=== PATIENT | female | born 1955 | race African-American/Black ===

== ENCOUNTER 2021-07-06 17:15 | Inpatient (IN) | payer OTHER ==
[~2021-07-06] VITALS: Ht 152.4 cm; Wt 59.4 kg
[2021-07-06 17:24] VITALS: BP 169/69
[2021-07-06 18:21] LABS: ABSOLUTE NEUTROPHILS 6.7 thou/uL (1.4-8.2); BASOPHILS 0.6 % (0.0-2.0); EOSINOPHILS 0.9 % (0.0-3.0); HEMATOCRIT 41.9 % (37.0-47.0); HEMOGLOBIN 13.3 gm/dL (12.0-15.0); LYMPHOCYTES 17.2 % (24.0-44.0); MCH 23.6 pg (26.0-34.0); MCHC 31.6 g/dL (28.0-37.0); MCV 74.6 fL (80.0-100.0); MONOCYTES 7.3 % (1.0-8.0); PLATELET COUNT 348 thou/uL (150-400); RBC 5.62 mil/uL (4.20-5.00); RDW 16.1 % (10.5-14.5); WBC 9.1 thou/uL (4.0-11.0)
[2021-07-06] MEDS ORDERED: BENICAR20 MG PO (18:41)
[2021-07-06] MEDS ORDERED: PRILOSEC OTC20 MG PO (18:41)
[2021-07-06] MEDS ORDERED: VITAMIN E1000 UNIT PO (18:42)
[2021-07-06 18:53] LABS: CALCIUM 9.1 mg/dL (8.5-10.1); CREATININE 0.8 mg/dL (0.6-1.0); POTASSIUM 3.9 mmol/L (3.5-5.1)
[2021-07-06 19:00] LABS: ALBUMIN 3.6 g/dL (3.4-5.0); MAGNESIUM 2.2 mg/dL (1.8-2.4); TOTAL BILIRUBIN 0.3 mg/dL (0.2-1.0); TOTAL PROTEIN 8.3 g/dL (6.4-8.2)
[2021-07-06 21:18] VITALS: BP 166/64
[2021-07-06 21:37] VITALS: BP 135/68
[2021-07-06 22:00] VITALS: BP 154/92
[2021-07-07 00:45] VITALS: BP 128/74
[2021-07-07 04:45] VITALS: BP 148/86
[2021-07-07 05:24] LABS: HEMATOCRIT 42.9 % (37.0-47.0); HEMOGLOBIN 13.7 gm/dL (12.0-15.0); MCH 23.7 pg (26.0-34.0); MCV 74.3 fL (80.0-100.0); RBC 5.78 mil/uL (4.20-5.00); RDW 15.9 % (10.5-14.5); WBC 7.7 thou/uL (4.0-11.0)
[2021-07-07 05:29] LABS: INR 1.06; PROTIME 11.5 Seconds (10.5-12.1)
[2021-07-07 05:44] LABS: CALCIUM 9.4 mg/dL (8.5-10.1); CREATININE 0.7 mg/dL (0.6-1.0); POTASSIUM 3.8 mmol/L (3.5-5.1)
--- NOTE | 2021-07-07 06:08 | NUR ---
ASSESSMENTS CHARTED. PATIENT ARRIVED FROM ED NEAR START OF SHIFT. PATIENT AMBULATED TO BED FROM CART. DENIES PAIN. SHORTNESS OF BREATH 2/2 LT PLEURAL EFFUSION. PATIENT STATED LEFT BREAST MASS IS BENIGN. PT WORKED UP FOR PE PROTOCOL, NO PE EVIDENT. PATIENT IS SCHEDULED FOR IR IN THE DAY FOR A THORACENTESIS.
[2021-07-07 08:00] VITALS: BP 142/94
[2021-07-07 12:00] VITALS: BP 157/86
--- NOTE | 2021-07-07 12:05 | EKG ---
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
[2021-07-07 14:30] LABS: BF NUCLEATED CELLS 1111 /mm3; BF RBC 154061 /mm3
[2021-07-07 14:33] LABS: TOTAL VOLUME 60 mL
[2021-07-07 14:34] LABS: CLARITY CLOUDY; COLOR RED
[2021-07-07 15:00] VITALS: BP 137/59
[2021-07-07 15:51] LABS: SOURCE THORACENTESIS
[2021-07-07 17:10] LABS: BF MACROPHAGE 40 %; BF NEUTROPHILS 0 %
--- NOTE | 2021-07-07 18:18 | NUR ---
ASSESSMENT CHARTED - MEDS PER OCT - PT REFUSED FLU SHOT THIS AM. FAB DIET AND FLUIDS. NO CO'S OF PAIN OR NASUEA. PT HAD THORACENTISIS COMPLETED TODAY - FOUND LUNG TO HAVE BLOOD PRESENT - WHEN FLUIDS REMOVED AIR FILLED UP SPACE AND LUNG COLLAPSED - PT BACK TO UNIT - PLACED ON O2 @ 2 L NC ORDERED. PT CHECKED REGULARLY FOR SHOTNESS OF BREATH WHICH PATIENT STATES SHE DOES NOT HAVE. TO HAVE CHEST XRAY DONE AT 2100 - DR MARQUEZ WILL BE CALLED RESULTS AND ANOTHER IN THE AM. DR MCBRIDE STATED THAT IF PATIENT HAD CHEST PAIN OR SOZ THAT CHEST TUBE NEEDED TO BE PLACED IMMEADIATLEY. PT WITH NO CO'S AT THE PRESENT TIME - FAB DIET AND FLUIDS - UP TO BTHROOM WITH NO CO'S OF SOA .
[2021-07-07 20:12] VITALS: BP 152/82
[2021-07-08 04:45] VITALS: BP 140/85
[2021-07-08 06:18] LABS: CALCIUM 9.3 mg/dL (8.5-10.1); CREATININE 0.7 mg/dL (0.6-1.0)
[2021-07-08 06:19] LABS: POTASSIUM 5.9 mmol/L (3.5-5.1)
[2021-07-08 06:40] LABS: HEMATOCRIT 44.2 % (37.0-47.0); MCH 23.6 pg (26.0-34.0); MCHC 31.6 g/dL (28.0-37.0); MCV 74.8 fL (80.0-100.0); RBC 5.91 mil/uL (4.20-5.00); RDW 16.1 % (10.5-14.5); WBC 9.9 thou/uL (4.0-11.0)
[2021-07-08 08:15] VITALS: BP 140/51
[2021-07-08 12:00] VITALS: BP 118/67
[2021-07-08] MEDS ORDERED: PROAIR HFA8.5 GM INH (14:04)
[2021-07-08 14:22] VITALS: BP 118/67
--- NOTE | 2021-07-08 15:11 | NUR ---
ASSESSMENT CHARTED - PT UP AD CONRADO IN ROOM WITH NO CO'S OF SOB. FAB DIET AND FLUIDS. AMBULATED IN THE HALLS EXERCISE OX COMPLETED SAT ABOVE 90. NO SOB NOTED. PT HOME THIS AFTERNOON, INSTRUCTION RE HOME MEDS/ CARE AND FOLLOW UP GIVEN - ADDED TO D/C SHEET THAT PT NEEDED TO FOLLOW UP WITH PULMONOLOGY AND PHONE# PROVIDED. PT LEFT UNIT VIA WHEEL - HOME VIA PVT VEHICLE NO CO'S AT TIME OF D/C.
[2021-07-11 10:07] LABS: BODY FLUID ALBUMIN 3.2 g/dL (Not Estab.); BODY FLUID AMYLASE 33 U/L (()); BODY FLUID GLUCOSE 82 mg/dL (()); BODY FLUID LDH 295 IU/L (()); BODY FLUID PROTEIN 5.2 g/dL (())
[2021-07-12 09:19] LABS: SOURCE THORACENTESIS
--- NOTE | 2021-07-15 13:08 | PATH ---
[facility] [address] [place] [address] PATHOLOGY RPT PROCEDURE Name: MORIAH OSHEA Room #: 207-P [facility] IN ..#: [id number] Admission: 07/06/21 Date of : 59 Discharge: 07/08/21 Report #: [id number] Path Case #: [id number] Note [facility] Accession Number: [id number] TESTS RESULT FLAG UNITS REF RANGE LAB Clinician Provided Cytology Information No. of containers..01 Other (Miscellaneous) Source: PLEURAL FLUID DIAGNOSIS: 02 PLEURAL FLUID NEGATIVE FOR MALIGNANT CELLS. MESOTHELIAL CELLS ARE PRESENT. Signed out by: 02 Harsha Yap MD, Pathologist NPI- [id number] Performed by: 01 Karoline Phillips Director Telecommunications ([facility]) Gross description: 01 10ML, BLOODY, RED /LCS 07/08/2021 1829 Local FLAG LEGEND: L-Low Normal,H-High Normal,LL-Alert Low,HH-Alert High <-Panic Low,>-Panic High,A-Abnormal,AA-Critical Abnormal Performed at: [address] [place] [address] Scott Agrawal MD, [address] [place] [id number] Harsha Yap MD, Specimen Comment: A courtesy copy of this report has been sent to [phone], [phone] Specimen Comment: [phone], Specimen Comment: Report sent to , DR LARSON / DR MARAVILLA Performed at: [address], [place], [place] [id number] MD Scott Agrawal MD Phone: [phone]
== END 2021-07-08 15:02 | disposition home or self-care (01) | DRG 194 ==
LOC: ER 17:15 → EROBS 21:10 → 2N 21:10
PROVIDERS: Internal Medicine Pulmonary Disease; Nurse Practitioner Family; ADMIT Hospitalist; ATTEND Hospitalist
PROC: 0W9B3ZZ Drainage of Left Pleural Cavity, Percutaneous Approach (ICD-10-PCS; principal; 2021-07-07)
DX: J18.9 Pneumonia, unspecified organism (principal); J91.8 Pleural effusion in other conditions classified elsewhere; I10 Essential (primary) hypertension; K21.9 Gastro-esophageal reflux disease without esophagitis; R79.1 Abnormal coagulation profile; M34.9 Systemic sclerosis, unspecified; I73.00 Raynaud's syndrome without gangrene; Z20.822 Contact with and (suspected) exposure to COVID-19; Z28.21 Immunization not carried out because of patient refusal; Z79.899 Other long term (current) drug therapy; Z88.1 Allergy status to other antibiotic agents; Z83.6 Family history of other diseases of the respiratory system; Z80.9 Family history of malignant neoplasm, unspecified; Z83.3 Family history of diabetes mellitus; Z82.49 Family history of ischemic heart disease and other diseases of the circulatory system; Z82.3 Family history of stroke; Z83.438 Family history of other disorder of lipoprotein metabolism and other lipidemia; Z82.0 Family history of epilepsy and other diseases of the nervous system
CPT/HCPCS: 10081

== ENCOUNTER 2021-07-20 20:43 | Emergency (ER) | payer OTHER ==
[~2021-07-20] VITALS: Ht 154.9 cm; Wt 57.6 kg
[~2021-07-20 20:43] MED LIST: BENICAR20 MG PO; PRILOSEC OTC20 MG PO; PROAIR HFA8.5 GM INH; VITAMIN E1000 UNIT PO
[2021-07-20 22:04] VITALS: BP 155/67
== END 2021-07-20 22:06 | disposition home or self-care (01) ==
LOC: ER 20:43
DX: R04.0 Epistaxis (principal); R04.2 Hemoptysis; I10 Essential (primary) hypertension; K21.9 Gastro-esophageal reflux disease without esophagitis; Z88.3 Allergy status to other anti-infective agents; Z79.899 Other long term (current) drug therapy

== ENCOUNTER → 2021-07-22 | Outpatient (CLI) | payer OTHER | LOC: RAD 13:07 | PROVIDERS: ATTEND Internal Medicine Pulmonary Disease | DX: J90 Pleural effusion, not elsewhere classified (principal); R91.8 Other nonspecific abnormal finding of lung field ==

== ENCOUNTER → 2021-08-19 | Outpatient (CLI) | payer OTHER ==
[~2021-08-19] MED LIST changes: +MULTI VITAMIN1 EACH PO; +VITAMIN D21250 MCG PO; +[UNRECOGNIZED DRUG - REMARK]
--- NOTE | 2021-08-19 12:21 | 2DMMODE ---
[facility] [place] [address] 2 D/M-MODE ECHOCARDIOGRAM Name: MORIAH OSHEA Room #: REG VALENTINO Galaviz.#: [id number] Admission: 08/19/21 Attend Phys: Jesse Almazan MD Discharge: Date of : 59 Report #: [id number] THIS REPORT FOR: cc: Harvey Moon MD, Michael B. MD Lammoglia, Francisco J. MD ~ APPROVED REPORT Study performed: 08/19/2021 11:18:00 EXAM: Comprehensive 2D, Doppler, and color-flow Echocardiogram Patient Location: Out-Patient Room #: 1 Status: routine BSA: 1.52 HR: 90 bpm BP: 148/82 mmHg Rhythm: NSR Other Information Study Quality: Adequate Indications Dyspnea Hypertension/HDD 2D Dimensions IVSd: 11.58 (7-11mm) LVOT Diam: 19.39 (18-24mm) LVDd: 31.64 mm PWd: 12.37 (7-11mm) Ascending Ao: 26.03 (22-36mm) LVDs: 21.23 (25-40mm) Left Atrium: 26.24 (27-40mm) Aortic Root: 22.40 mm IVC: 10.00 mm Volumes Left Atrial Volume (Systole) Single Plane 4CH: 19.68 mL Single Plane 2CH: 26.40 mL LA ESV Index: 17.00 mL/m2 Aortic Valve AoV Peak Jeremiah.: 1.25 m/s AO Peak Gr.: 6.20 mmHg LVOT Max P.42 mmHg LVOT Max V: 1.16 m/s SHELL Vmax: 2.76 cm2 [facility] [address] [place] [address] 2 D/M-MODE ECHOCARDIOGRAM Name: DAYOMORIAH Room #: REG CL [facility]#: [id number] Admission: 08/19/21 Attend Phys: Jesse Almazan MD Discharge: Date of : 59 Report #: [id number] Mitral Valve E/A Ratio: 0.9 MV Decel. Time: 257.83 ms MV E Max Jeremiah.: 0.75 m/s MV A Jeremiah.: 0.84 m/s MV PHT: 74.77 ms IVRT: 124.57 ms Pulmonary Valve PV Peak Jeremiah.: 0.94 m/s PV Peak Gr.: 3.53 mmHg Pulmonary Vein P Vein S: 1.04 m/s P Vein A: 0.27 m/s P Vein D: 0.63 m/s P Vein A Dur.: 110.7 msec P Vein S/D Ratio: 1.65 Tricuspid Valve TR Peak Jeremiah.: 3.04 m/s TR Peak Gr.: 36.99 mmHg PA Pressure: 42.00 mmHg Left Ventricle The left ventricle is normal size. There is normal LV segmental wall motion. Mild concentric left ventricular hypertrophy. The left ventricular systolic function is normal. The left ventricular ejection fraction is within the normal range. LVEF is 55-60%. Grade I - abnormal relaxation pattern. Right Ventricle The right ventricle is normal size. The right ventricular systolic function is normal. Atria The left atrium size is normal. The right atrium size is normal. Aortic Valve The aortic valve is normal in structure. No aortic regurgitation is present. There is no aortic valvular stenosis. Mitral Valve The mitral valve is normal in structure. There is no mitral valve regurgitation noted. No evidence of mitral valve stenosis. Tricuspid Valve [facility] [place] [address] 2 D/M-MODE ECHOCARDIOGRAM Name: MORIAH OSHEA Room #: REG [facility]#: [id number] Admission: 08/19/21 Attend Phys: Jesse Almazan MD Discharge: Date of : 59 Report #: [id number] The tricuspid valve is normal in structure. There is trace tricuspid regurgitation. Estimated PAP 42 mmHg. There is moderate pulmonary hypertension. Pulmonic Valve The pulmonary valve is normal in structure. There is no pulmonic valvular regurgitation. Great Vessels The aortic root is normal in size. IVC is normal in size and collapses >50% with inspiration. Pericardium There is no pericardial effusion. <Conclusion> The left ventricle is normal size. Mild concentric left ventricular hypertrophy. LVEF is 55-60%. The right ventricle is normal size. The left atrium size is normal. The aortic valve is normal in structure. The mitral valve is normal in structure. The tricuspid valve is normal in structure. There is trace tricuspid regurgitation. Estimated PAP 42 mmHg. There is moderate pulmonary hypertension. The pulmonary valve is normal in structure. The aortic root is normal in size. There is no pericardial effusion. <ELECTRONICALLY SIGNED> By: Dimas Odom MD 08/19/21 1221 1221 1221 Dimas Odom MD /INF
== END ==
LOC: CV 08-18 11:34
PROVIDERS: ATTEND Internal Medicine Pulmonary Disease
DX: I51.7 Cardiomegaly (principal); I27.20 Pulmonary hypertension, unspecified; R06.00 Dyspnea, unspecified

== ENCOUNTER → 2021-08-22 | Outpatient (CLI) | payer OTHER ==
[~2021-08-22] VITALS: Ht 154.9 cm; Wt 51.7 kg
[2021-08-22 08:15] VITALS: BP 129/47
== END | disposition home or self-care (01) ==
LOC: OR 08-05 08:07 → PUL 07:22 → EDSTATUS 11:26 → PUL 11:57 → OR 14:32
PROVIDERS: ATTEND Internal Medicine Pulmonary Disease
DX: J98.4 Other disorders of lung (principal); I10 Essential (primary) hypertension; K21.9 Gastro-esophageal reflux disease without esophagitis; Z98.890 Other specified postprocedural states; Z79.899 Other long term (current) drug therapy; Z20.822 Contact with and (suspected) exposure to COVID-19; Z88.8 Allergy status to other drugs, medicaments and biological substances
CPT/HCPCS: 62110; 62900; 70005

== ENCOUNTER → 2021-09-01 | Outpatient (CLI) | payer OTHER | LOC: RAD 13:21 | PROVIDERS: ATTEND Internal Medicine Pulmonary Disease | DX: J84.9 Interstitial pulmonary disease, unspecified (principal); R06.00 Dyspnea, unspecified ==